=== PATIENT | male | born 2005 | race African-American/Black ===

== ENCOUNTER 2024-10-03 16:02 | Emergency (ER) | payer OTHER, SELFPAY ==
--- NOTE | ~2024-10-03 | XR_ITS ---
CLINICAL HISTORY: injured during basketball, diffusely tender 5 view left knee Comparison: None Findings: No fractures or dislocations. No significant arthritic change or erosions. Small joint effusion. No radiopaque foreign body. IMPRESSION: No acute fracture. This document has been electronically signed by: Shelby Conti MD on 10/03/2024 17:12:46
--- NOTE | 2024-10-03 16:20 | ED.GENADULT ---
HPI - General Adult General Chief complaint: Extremity Injury, Lower Stated complaint: playing basketball/left leg injury Time Seen by Provider: 10/04/24 00:28 History of Present Illness ED Provider: Jhoana DYSON narrative: The patient is a 19-year-old male who says that he injured his left knee this evening when he slipped on ice and twisted the left knee. He says he did not fall or strike the knee but had a twisting mechanism of injury. He has pain at the knee and pain with walking. There was no other injury. No numbness or tingling in the foot. Related Data Previous Rx's ?Medication ?Instructions ?Recorded ibuprofen 600 mg tablet 600 mg PO Q6H PRN pain #14 tabs 10/04/24 Allergies Allergy/AdvReac Type Severity Reaction Status Date / Time No Known Allergies Allergy Verified 10/03/24 16:23 Review of Systems Review of Systems: Yes all other systems are reviewed and are negative PMFSH Social History Social History Advance Directives: No Advance Directives Information Provided: Yes Do you have a plan to hurt others: No Plan Physical Exam ED Vital Signs: Vital Signs - 24 hr 10/03/24 16:22 Temperature 98.1 F Pulse Rate 103 H Respiratory Rate 18 Blood Pressure 136/73 Pulse Oximetry 98 Oxygen Delivery Method Room Air BMI result Body Mass Index 48.8 Const Other: The patient is a large 19-year-old male. He is awake and alert, pleasant cooperative. Does not appear in overt distress. HENNY Head: Yes normal to inspection Face and sinus: Yes normal facial exam Mouth: Normal oral and palatal mucosa present Eyes General: appearance normal, both eyes and all related structures Neck Neck: Yes full ROM Resp Effort & Inspection: normal respiratory effort Skin Other: The skin is intact. Neuro Other: The patient is awake and alert with normal mental status. Left foot is neurovascularly intact. Extrem Other: The patient has mild diffuse tenderness around the left knee. He is most tender at the medial aspect of the left knee. No gross instability the any of the ligaments of the knee. He has pain with manipulation of the knee. The remainder of the leg is unremarkable. Course Course Course Narrative: This is a rapid medical exam performed by Shwetha Glass NP: Additional HPI, ROS, PE not included below will be deferred to primary provider. Patient is a 19-year- old male presenting to the ED with complaint of left knee pain since playing basketball earlier today. Unsure of mechanism but states I felt something move and then move back. Ambulating with limp. Plan: xray Medications Administered Discontinued Medications Generic Name Dose Route Start Last Admin Trade Name Venessa PRN Reason Stop Dose Admin Acetaminophen 975 mg 10/04/24 00:37 10/04/24 00:52 Acetaminophen 325 Mg Tablet PO 10/04/24 00:38 975 mg ONCE ONE Administration Ibuprofen 600 mg 10/04/24 00:37 10/04/24 00:53 Ibuprofen 600 Mg Tablet PO 10/04/24 00:38 600 mg ONCE ONE Administration Medical Decision Making Medical Decision Making MDM Narrative: The patient is a 19-year-old male who injured his left knee when he slipped on ice. He describes a twisting type injury. An x-ray shows no fracture but does suggest a possible small effusion. His physical exam reveals that his area of maximal pain and tenderness is at the medial aspect of the left knee. No gross instability to the medial collateral ligament or the other ligaments of the knee. My plan was to give the patient a knee immobilizer and have him use crutches and follow-up with Orthopedics. Unfortunately the patient is so large that our largest knee immobilizer does not fit him. He will therefore be given Dick bandages. He has crutches at home. He is advised to rest and elevate the knee and use ice. He should follow up with Orthopedics. Discharge Plan Discharge Clinical Impression: Strain of left knee Patient Disposition: Home, Self-Care Additional Instructions: The x-ray of your knee does not show a fracture. I believe you have strained the knee. Specifically you may have strained the medial collateral ligament of the left knee. Please wear the knee immobilizer for the next several days and stay off the leg and rest as much as possible. Use the crutches that you already have as well. Use an ice pack several times a day. You may use ibuprofen as needed for the pain. Please contact the orthopedic office in the morning for a follow up appointment soon. Return to the emergency room if significantly worse at any time. Prescriptions: New ibuprofen 600 mg tablet 600 mg PO Q6H PRN (Reason: pain) Qty: 14 0RF [place] [facility] [place] Group] (left knee strain, ? medial adela ligament strain) Stand Alone Forms: Work/School Release Interventions: ED Discharge Assessment Last Done: 10/04/24 00:56 Discharge Date/Time: 10/04/24 01:10 Print Language: Rwandan
[2024-10-03 16:22] VITALS: BP 136/73; PULSE 103; RESP 18; TEMP 36.7; O2SAT 98; BMI 48.8
[2024-10-04] MEDS: Acetaminophen 325 MG TABLET 975 MG PO (00:52)
[2024-10-04] MEDS: Ibuprofen 600 MG TABLET PO (00:53)
[2024-10-04 00:56] VITALS: BP 138/66; PULSE 99; RESP 20; TEMP 36.8; O2SAT 97
--- OUTSIDE RECORDS SUMMARY | 2024-10-04 01:11 | XMS_ITS | Encounter Summary ---
Author Organization [facility] Address [phone] [place] [address] Care Team Providers Care American Indian Policy Specialist Name Role Phone Sharon Whyte MD Primary Care Provider Encounter Details Date Type Department Care Team ([facility] Contact Info) Description 09/16/2024 2:32 PM EST - 09/16/2024 11:59 PM EST Hospital Encounter [facility] [address] [place] [address] [place] [address] Sharon Wyhte MD [address] [place] [address], [address] [place] [address] [email or web address] Discharge Disposition: Home or Self Care Social History Tobacco Use Types Packs/Day Years Used Date Smoking Tobacco: Never Smokeless Tobacco: Never Alcohol Use Standard Drinks/Week Comments Never 0 (1 standard drink = 0.6 oz pur e alcohol) Child or Family Care Answer Date Record ed Do you have problems with on e of the following making it difficult for you to work, study, or receive health care? No 01/02/2024 Education Answer Date Recorded Are you interested in more education? Not on anne marie e 01/02/2024 Are you concerned about your learning, performance, or behavior in school? No 01/02/2024 No 01/02/2024 Yes 01/02/2024 Food Answer Date Recorded Within the past 6 months we worried whether our food would run out before we got money to buy more. Never True 01/02/2024 Within the past 6 months the food we bought just didn't last and we didn't have enough money to get more. Never True Residential Stability Answer Date Recor ded What is your housing situation today? I have nae belcher 01/02/2024 How many times have you move d in the past 12 months? Zero (I did not move) 01/02/2024 Paying for Meds Answer Date Recorded Do you have trouble paying for medicines? No 01/02/2024 Paying Utility Bills Answer Date Record ed Do you have trouble paying your heating or elect ricity bill? No 01/02/2024 Transportation Answer Date Recorded Has the lack of transportati on kept you from medical appointments or from getting medications? No 01/02/2024 Digital Access Answer Date Recorded No 01/02/2024 Yes 01/02/2024 Do you have reliable internet access at home? Ye s 01/02/2024 Do you have a device (e.g., phone, tablet, computer) with a working camera? Yes 01/02/2024 Intimate Partner Violence Answer Date R ecorded Denied Basic Needs Not on file 01/02/2024 In the past 12 months have y ou been in a relationship with a person who hurts, threatens, or tries to control you? No 01/02/2024 Worried food would run out Not on file 01/01 In the past 12 months have y ou been in a relationship with a person who hurts, threatens, or tries to control you? No 01/02/2024 Sex and Gender Information Value Date Recorded Sex Assigned at Male 05/28/2021 10:46 PM EDT Gender Identity Male 05/28/2021 10:46 PM EDT Sexual Orientation Not on file documented as of this encounter Medications at Time of Discharge Medication Sig Dispensed Refills Start Date End Date atovaquone-proguanil (MALARONE) 250-100 mg TabIndications:Travel advice encounter Take 1 tablet by mouth daily. Start 1-2 days before travel, continue while traveling and for 1 week after return 33 tablet 01/02/2024 documented as of this encounter Plan of Treatment Not on file documented as of this encounter Procedures Procedure Name Priority Date/Time Associated Diagnosis Comments COMPREHENSIVE METABOLIC PANEL Routine 09/16/2024 2:33 PM EST Class 3 severe obesity without serious comorbidity with body mass index (BMI) of 45.0 to 49.9 in adult, unspecified obesity type TSH WITH REFLEX Routine 09/16/2024 2:33 PM EST Class 3 severe obesity without serious comorbidity with body mass index (BMI) of 45.0 to 49.9 in adult, unspecified obesity type CBC Routine 09/16/2024 2:33 PM EST Class 3 severe obesity without serious comorbidity with body mass index (BMI) of 45.0 to 49.9 in adult, unspecified obesity type HEMOGLOBIN A1C Routine 09/16/2024 2:33 PM EST Class 3 severe obesity without serious comorbidity with body mass index (BMI) of 45.0 to 49.9 in adult, unspecified obesity type LIPID PANEL Routine 09/16/2024 2:33 PM EST Class 3 severe obesity without serious comorbidity with body mass index (BMI) of 45.0 to 49.9 in adult, unspecified obesity type documented in this encounter Results * (ABNORMAL) CBC (09/16/2024 2:33 PM EST) WBC 8.60 4.00 - 11.00 K/uL [facility] RBC 5.07 4.50 - 5.90 M/uL [facility] HGB 13.5 13.5 - 17.5 g/dL [facility] HCT 42.2 41.0 - 53.0 % [facility] PLT 246 150 - 450 K/uL [facility] MCV 83.2 80.0 - 100.0 fL [facility] MCH 26.6(L) 27.0 - 31.0 pg [facility] MCHC 32.0 32.0 - 36.0 g/dL [facility] RDW 14.7(H) 11.5 - 14.5 % [facility] MPV 11.5 8.4 - 12.0 fL [facility] NRBC 0.00 0.00 /100 WBCs [facility] ABSOLUTE NRBC 0.00 0.00 K/uL [facility] Blood 09/16/2024 2:33 PM EST 09/16/2024 2:39 PM EST Sharon Whyte MD LAB BLOOD ORDERABLE S [address] [address] * (ABNORMAL) Comprehensive metabolic panel (09/16/2024 2:33 PM EST) SODIUM 142 133 - 146 mmol/L [facility] POTASSIUM 4.3 3.3 - 5.1 mmol/L [facility] CHLORIDE 104 96 - 108 mmol/L [facility] CO2 28 21 - 35 mmol/L [facility] BUN 14 6 - 19 mg/dL [facility] CREATININE 1.30 0.5 - 1.5 mg/dL [facility] GLUCOSE 83 70 - 99 mg/dL [facility] ALBUMIN 4.2 3.9 - 4.8 g/dL [facility] TOTAL PROTEIN 7.9 6.5 - 8.0 g/dL [facility] CALCIUM 9.9 8.4 - 10.3 mg/dL [facility] ALKALINE PHOSPHATASE 109 39 - 117 U/L [facility] TOTAL BILIRUBIN <0.2 0.0 - 1.2 mg/dL [facility] AST 69(H) 0 - 37 U/L [facility] ALT 75(H) 0 - 40 U/L [facility] GLOBULIN 3.7 1 - 4.8 g/dL [facility] EGFR 81 >59 mL/min/1.7 3m2 [facility] Comment:Estimated glomerular filtration rate calculated using the CKD-EPI refit equation. ANION GAP 14 10 - 20 mmol/L [facility] Blood 09/16/2024 2:33 PM EST 09/16/2024 2:39 PM EST Sharon Whyte MD LAB BLOOD ORDERABLE S [address] [address] * Hemoglobin A1c (09/16/2024 2:33 PM EST) HEMOGLOBIN A1C 5.8 4.3 - 5.8 % [facility] Blood 09/16/2024 2:33 PM EST 09/16/2024 2:38 PM EST Sharon Whyte MD LAB BLOOD ORDERABLE S Performing Organization Address City/[facility]/ZIP Co de Phone Number [address] [address] * (ABNORMAL) Lipid panel (09/16/2024 2:33 PM EST) HDL 38 mg/dL [facility] Comment: ? Interpretation <40 mg/dL: Low HDL cholesterol (major risk factor for CHD) Greater than or equal to 60 mg/dL: High HDL cholesterol ( negative risk factor for CHD) HDL - cholesterol is affected by a number of factors, e.g. smoking, excerise, hormones, sex and age. CHOLESTEROL 160 0 - 240 mg/dL [facility] TRIGLYCERIDES 184(H) 30 - 160 mg/dL [facility] LDL 85 50 - 129 mg/dL [facility] Comment: LDL levels in terms of risk for coronary heart disease: <100 mg/dL: Optimal 100-129 mg/dL: Near or above optimal 130-159 mg/dL: Borderline high 160-189 mg/dL: High >190 mg/dL: Very High CARDIAC RISK RATIO 4.2 3.4 - 5.0 [facility] Blood 09/16/2024 2:33 PM EST 09/16/2024 2:38 PM EST Sharon Whyte MD LAB BLOOD ORDERABLE S Performing Organization Address City/[facility]/ZIP Co de Phone Number [address] [address] * TSH with reflex (09/16/2024 2:33 PM EST) TSH 1.71 0.27 - 4.20 uIU/mL [facility] Blood 09/16/2024 2:33 PM EST 09/16/2024 2:39 PM EST Sharon Whyte MD LAB BLOOD ORDERABLE S [facility] [address] [place] [address] documented in this encounter Visit Diagnoses Diagnosis Class 3 severe obesity without serious comorbidity with body mass index (BMI) of 45.0 to 49.9 in adult, unspecified obesity type documented in this encounter Additional Health Concerns Assessment Noted Time PHQ-2 Depression Total Score: 0 01/02/20 10:12 AM EDT documented as of this encounter Care Teams American Indian Policy Specialist Relationship Specialty Start Date End Date Sharon Whyte MD [address] [place] [address], [address] [place] [address] [email or web address] PCP - General Internal Medicine 01/02/24 documented as of this encounter Additional Source Comments The information contained in this document represents components of the legal health record. It is not the complete legal health record.[facility]
--- OUTSIDE RECORDS SUMMARY | 2024-10-04 01:11 | XMS_ITS | Clinical Summary ---
Author Organization [facility] Address [address] [place] [address] Phone Care Team Providers Care Graffiti Cleaner Name Role Phone Erica Harrington MD Primary Care Provider [phone] Allergies No known active allergies Medications No known medications Active Problems Problem Noted Date Diagnosed Date Overweight 10/07/2009 Assessment & Plan (06/05/2019 3:03 PM EDT): Discussed reducing soda intake and juice intake, drinking more water and watching portion sizes. Resolved Problems Problem Noted Date Diagnosed Date Resolved Date Learning problem 12/28/2016 05/03/2018 Immunizations Immunization Administration Dates Next Due DTaP 5 04/24/2009, 9,2004,06/19,2004 H1N1 Nasal 07/26/2009 HPV Vaccine 9 Valent 05/03/2018,12/28/2016 Hep A, ped/adol 05/03/2018,12/28/2016 Hep B, ped/adol 06/17/2008,12/27/2007,11/27/2007 IPV 10/14/2008, 4,2004,05/15 Influenza Split 06/17/2008 Influenza, injectable, quadr ivalent, preservative free 05/06/2020,06/05/2019,05/03/2018,10/04 Influenza, injectable, triva lent, preservative free 07/02/2013,07/26/2009 Influenza, intranasal, trivalent 06/02/2010 MMR 12/03/2014,10/14/2008 Measles 11/27/2007 Meningococcal Conj (Menactra) MCV4P 08/04/2020,0 12/28/2016 PPD Test 10/14/2008 Rubella 11/27/2007 Tdap 12/23/2015 Varicella 11/08/2012,10/14/2008 Social History Tobacco Use Types Packs/Day Years Used Date Smoking Tobacco: Never Smokeless Tobacco: Never Hunger/Food Answer Date Recorded In the last 12 months, did y ou or your family ever eat less than you felt you should because there wasn't enough money for food? No 06/05/2019 Stable Housing Answer Date Recorded Are you worried that in the next 2 months you may not have stable housing? No 06/05/2019 Transportation Concerns Answer Date Rec orded In the last 12 months, have you or your family ever had to go without healthcare because you didn't have a way to get there? No 06/05/2019 Hazards in Home Answer Date Recorded Think about the place you li ve. Do you have problems with any of the following? Pests (mice or roaches), mold, no/not working smoke detectors, water leaks, no window guards. No 2018 Financing Utilities Answer Date Recorde d In the last 12 months, has t he electric, gas, oil, or water company threatened to shut off your services in your home? No 06/05/2019 Safety at Home Answer Date Recorded Are you or your family worried about feeling saf e in your home? No 06/05/2019 Outside Support Answer Date Recorded Do you feel that you need mo re support from other people or programs to help you care for yourself or your family? No 06/05/2019 Understanding Health Concerns Answer Da te Recorded Do you need help understandi ng your or your child's healthcare needs (diagnosis, medications, plan, etc.)? No 06/05/2019 Financing Health Concerns Answer Date R ecorded In the last 12 months, was t here a time when your child needed to see a doctor or get medications or supplies but could not because of cost? No 06/05/2019 Missing School or Work Answer Date Will rded Did you or your child miss s chool or work because of a health problem that could have been avoided? No 06/05/2019 Sex and Gender Information Value Date Recorded Sex Assigned at Male 06/05/2019 1:42 PM EDT Legal Sex Male 4:14 PM EST Gender Identity Male 06/05/2019 1:42 PM EDT Sexual Orientation Straight 06/05/2019 1: 42 PM EDT Last Filed Vital Signs Vital Sign Reading Time Taken Comments Blood Pressure 122/74 08/04/2020 2:35 PM EST Pulse 98 08/04/2020 2:35 PM EST Temperature 36.7 ??C (98.1 ??F) 05/20/2019 9:16 AM ED T Respiratory Rate 16 05/20/2019 9:16 AM EDT Oxygen Saturation 99% 05/20/2019 9:16 AM EDT ra Inhaled Oxygen Concentration - - Weight 133 kg (294 lb 3.2 oz) 08/04/2020 2:35 PM EST Height 188 cm (6' 2 ) 08/04/2020 2:35 PM EST Body Mass Index 37.77 08/04/2020 2:35 PM EST Plan of Treatment Health Maintenance Due Date Last Done Comments Consider Men B Vaccine (1 of 2 - Bexsero 2-dose series) 2020 Men B Vaccine (1 of 2 - Standard) 2020 Influenza Vaccines (#1) 2024 05/06/20 20, 06/05/2019, 05/03/2018, Additional history exists COVID-19 Vaccine ( - season) 2024 01/27/2022, 02/01/2021, 01/11/2021 DTaP,Tdap,and Td Vaccines (7 - Td or Tdap) 12/22/2025 12/23/2015, 04/24/2009, 10/14/2008, Additional history exists Hepatitis B Vaccines Completed 06/17/2008, 12/27/2007, 11/27/2007 IPV Vaccines Completed 10/14/2008, 06/22, 2004, Additional history exists Varicella Vaccines Completed 11/08/2012, 10/14/2008 MMR Vaccines Completed 12/03/2014, 10/14/2008 HPV Vaccines Completed 05/03/2018, 12/28/2016 Hepatitis A Vaccines Completed 05/03/2018, 12/29/19 17 Meningococcal Vaccine Completed 08/04/2020, 017 HIB Vaccines Aged Out No longer eligi ble based on patient's age to complete this topic Pneumococcal Vaccine Aged Out No long er eligible based on patient's age to complete this topic Care Teams Graffiti Cleaner Relationship Specialty Start Date End Date Erica Harrington MD [address] [place] [address] [address] [place] [address] PCP - General Pediatrics 11/23/16
--- OUTSIDE RECORDS SUMMARY | 2024-10-04 01:11 | XMS_ITS | Encounter Summary ---
Author Organization [facility] Address [address] [place] [address] Phone Care Team Providers Care Tobacco Wetter Name Role Phone Erica Harrington MD Primary Care Provider [phone] Encounter Details Date Type Department Care Team (Late st Contact Info) Description 06/02/2010 Nurse Only [address] [address] Social History Tobacco Use Types Packs/Day Years Used Date Smoking Tobacco: Never Assessed Sex and Gender Information Value Date Recorded Sex Assigned at Male 06/05/2019 1:42 PM EDT Legal Sex Male 4:14 PM EST Gender Identity Male 06/05/2019 1:42 PM EDT Sexual Orientation Straight 06/05/2019 1: 42 PM EDT documented as of this encounter Nursing Notes * UNKNOWN, HISTORICAL - 06/02/2010 1:42 PM EDT Brissa Mauro 2004 NURSE NOTE/VERBAL ORDERS Office/Outpatient Visit Visit Date: Jun 02, 2010 01:42 pm Provider: Cely Delgado LPN (Machine Welder: Manuela Velázquez MD; Power Mule Operator: Cely Delgado LPN) Location: [facility]. ECTIVE: CC: He is here for the Flu Clinic. HPI: Pt enters with Mom. No known chronic health conditions. Fever or illness is not present today. No trouble breathing or hives after eating eggs He has not had a reaction to the flu vaccine or other immunization. Flu vaccine VIS was given today.(interim 03/30/10) There were no questions or concerns voiced at today's visit. OBJECTIVE: Exams: GENERAL APPEARANCE: Alert, active, looks well, mood appropriate ASSESSMENT: V04.81 Flu Clinic ORDERS: Procedures Ordered: Flu Vaccine live, Intranasal use Immunization administration (includes percutaneous, intradermal, subcutaneous or intramuscular injec PLAN: Flu Clinic Influenza intranasal vaccine given No contraindications noted for flu vaccines. Tolerated well, left office in good condition. Orders: Flu Vaccine live, Intranasal use Immunization administration (includes percutaneous, intradermal, subcutaneous or intramuscular injec Patient Recommendations: For Flu Clinic: Influenza (Given) CHARGE CAPTURE: Primary Diagnosis: V0 Flu Clinic Orders: [id number] Flu Vaccine live, Intranasal use [id number] Immunization administration (includes percutaneous, intradermal, subcutaneous or intramuscular injec documented in this encounter Plan of Treatment Not on file documented as of this encounter Visit Diagnoses Not on filedocumented in this encounter Care Teams Tobacco Wetter Relationship Specialty Start Date End Date Erica Harrington MD [address] [place] [address] [address] [place] [address] PCP - General Pediatrics 11/23/16 documented as of this encounter
--- OUTSIDE RECORDS SUMMARY | 2024-10-04 01:11 | XMS_ITS | Clinical Summary ---
Author Organization [facility] Address [phone] [address] [place] [address] Care Team Providers Care Wood Grinder Operator Name Role Phone Sharon Whyte MD Primary Care Provider Allergies No known active allergies Medications Medication Sig Dispensed Refills Start Date End Date Status atovaquone-proguanil (MALARONE) 250-100 mg TabIndications:Joseph galvan advice encounter Take 1 tablet by mouth daily. Start 1-2 days before travel, continue while traveling and for 1 week after return 33 tablet 01/02/2024 Active Active Problems Problem Noted Date Diagnosed Date Travel advice encounter 01/04/2024 Assessment & Plan (01/04/2024 8:30 PM EDT): He will be traveling to [facility] with his family. We discussed malaria prophylaxis. He was given Malarone for this. We also discussed cholera and typhoid vaccine. He was advised to go to a travel clinic to discuss those vaccines. Class 3 severe obesity witho ut serious comorbidity with body mass index (BMI) of 45.0 to 49.9 in adult 10/07/2009 Overview (01/02/2024): Last Assessment & Plan: Discussed reducing soda intake and juice intake, drinking more water and watching portion sizes. Assessment & Plan (01/04/2024 8:25 PM EDT): He is working on diet and lifestyle changes with goal of weight loss. Encounters Date Type Department Care Team Description 09/16/2024 2:32 PM EST - 09/16/2024 11:59 PM EST Hospital Encounter [facility] [address] [place] [address] Sharon Whyte MD Discharge Disposition: Home or Self Care from Last 3 Months Immunizations Name Administration Dates Next Due DTaP 04/24/2009, 9,2004,06/19,2004 [id number] 07/26/2009 HPV9 05/03/2018,12/28/2016 Hep A,ped/adol,3 dose 05/03/2018,12/28/2016 Hepatitis B 06/17/2008,12/27/2007,11/27/2007 IPV 10/14/2008, 4,2004,05/15 Influenza High-Dose Quadriva lent Preservative Free IM 07/02/2013,07/26/2009 Influenza Split (Incl. Purif ied Surface Antigen) 06/17/2008 Influenza quadrivalent nasal 06/02/2010 Influenza, Injectable,pedro valent, Preservative Free, Ped 05/06/2020,06/05/2019,05/03/2018,10/04 Meningococcal MCV4P 08/04/2020,12/28/2016 Family History Medical History Relation Comments Diabetes mellitus Father Heart disease Father Hypothyroidism Mother Relation Status Comments Father Mother Social History Tobacco Use Types Packs/Day Years Used Date Smoking Tobacco: Never Smokeless Tobacco: Never Tobacco Cessation:Counseling Given: Not Answered Alcohol Use Standard Drinks/Week Comments Never 0 [...] PM EDT Sexual Orientation Not on file Last Filed Vital Signs Vital Sign Reading Time Taken Comments Blood Pressure 138/86 01/02/2024 10:22 AM EDT Pulse 90 01/02/2024 10:22 AM EDT Temperature 36.1 ??C (97 ??F) 01/02/2024 10: 22 AM EDT Respiratory Rate 20 05/28/2021 10:4 4 PM EDT Oxygen Saturation 99% 01/02/2024 10: 22 AM EDT Inhaled Oxygen Concentration - - Weight 169.9 kg (374 lb 9.6 oz) 024 10:22 AM EDT Height 188 cm (6' 2 ) 01/02/2024 10:22 AM EDT Body Mass Index 48.1 01/02/2024 10:22 AM EDT Plan of Treatment Health Maintenance Due Date Last Done Comments HEPATITIS B SCREENING 2022 HEPATITIS C SCREENING 2022 HIV ONE-TIME SCREENING (18-65 YEARS) 2022 INFLUENZA VACCINE (#1) 2024 0, 06/05/2019, 05/03/2018, Additional history exists COVID-19 VACCINE ( season) 2024 DEPRESSION SCREENING 01/01/2025 01/02/2024 DEVELOPMENTAL/BEHAVIORAL SCREENING (PHQ, PSC, or SWYC) 01/01/2025 01/02/2024 SMOKING Hx and SMOKELESS TOBACCO SCREENING 01/01/2025 01/02/2024 COMBINED DTaP,Tdap,Td (6 - Td or Tdap) 12/22/2025 12/23/2015, 04/24/2009, 10/14/2008, Additional history exists HEPATITIS B VACCINES Completed 06/17/2008, 12/27/2007, 11/27/2007 VARICELLA VACCINES Completed 11/08/2012, 10/14/2008 MMR VACCINES Completed 12/03/2014, 10/14/2008 HEPATITIS A VACCINES Completed 05/03/2018, 12/29/19 17 HPV VACCINES Completed 05/03/2018, 12/28/2016 MENINGOCOCCAL VACCINES (ACWY) Completed 08/04/2020, 12/28/2016 ADOLESCENT UNIVERSAL LIPID SCREENING Completed 09/16/2024 HIB VACCINES Aged Out No longer eligi ble based on patient's age to complete this topic PNEUMOCOCCAL VACCINES (0-49 years) Aged Out No longer eligible based on patient's age to complete this topic Medical Devices Not on file Procedures Procedure Name Priority Date/Time Associated Diagnosis Comments CBC Routine 09/16/2024 2:33 PM EST Class 3 severe obesity without serious comorbidity with body mass index (BMI) of 45.0 to 49.9 in adult, unspecified obesity type COMPREHENSIVE METABOLIC PANEL Routine 09/16/2024 2:33 PM [...] to 49.9 in adult, unspecified obesity type from Last 3 Months Results * (ABNORMAL) Comprehensive metabolic panel (09/16/2024 2:33 PM EST) SODIUM 142 133 - 146 mmol/L [facility] POTASSIUM 4.3 3.3 - 5.1 mmol/L [facility] CHLORIDE 104 96 - 108 mmol/L [facility] CO2 28 21 - 35 mmol/L [facility] BUN 14 6 - 19 mg/dL [facility] CREATININE 1.30 0.5 - 1.5 mg/dL [facility] GLUCOSE 83 70 - 99 mg/dL [facility] ALBUMIN 4.2 3.9 - 4.8 g/dL [facility] TOTAL PROTEIN 7.9 6.5 - 8.0 g/dL [facility] CALCIUM 9.9 8.4 - 10.3 mg/dL [facility] ALKALINE PHOSPHATASE 109 39 - 117 U/L [facility] TOTAL BILIRUBIN <0.2 0.0 - 1.2 mg/dL [facility] AST 69(H) 0 - 37 U/L [facility] ALT 75(H) 0 - 40 U/L [facility] GLOBULIN 3.7 1 - 4.8 g/dL [facility] EGFR 81 >59 mL/min/1.7 3m2 [facility] Comment:Estimated glomerular filtration rate calculated using the CKD-EPI refit equation. ANION GAP 14 10 - 20 mmol/L [facility] Blood 09/16/2024 2:33 PM EST 09/16/2024 2:39 PM EST Sharon Whyte MD LAB BLOOD ORDERABLE S [address] [address] * TSH with reflex (09/16/2024 2:33 PM EST) TSH 1.71 0.27 - 4.20 uIU/mL [facility] Blood 09/16/2024 2:33 PM EST 09/16/2024 2:39 PM EST Sharon Whyte MD LAB BLOOD ORDERABLE S [address] [address] * (ABNORMAL) CBC (09/16/2024 2:33 PM EST) WBC 8.60 4.00 - 11.00 K/uL [facility] RBC 5.07 4.50 - 5.90 M/uL [facility] HGB 13.5 13.5 - 17.5 g/dL [facility] HCT 42.2 41.0 - 53.0 % [facility] PLT 246 150 - 450 K/uL [facility] MCV 83.2 80.0 - 100.0 fL [facility] MCH 26.6(L) 27.0 - 31.0 pg [facility] MCHC 32.0 32.0 - 36.0 g/dL [facility] RDW 14.7(H) 11.5 - 14.5 % [facility] MPV 11.5 8.4 - 12.0 fL [facility] NRBC 0.00 0.00 /100 WBCs [facility] ABSOLUTE NRBC 0.00 0.00 K/uL [facility] Blood 09/16/2024 2:33 PM EST 09/16/2024 2:39 PM EST Sharon Whyte MD LAB BLOOD ORDERABLE S Performing Organization Address City/[facility]/ZIP Co de Phone Number [address] [address] * Hemoglobin A1c (09/16/2024 2:33 PM EST) HEMOGLOBIN A1C 5.8 4.3 - 5.8 % [facility] Blood 09/16/2024 2:33 PM EST 09/16/2024 2:38 PM EST Sharon Whyte MD LAB BLOOD ORDERABLE S Performing Organization Address [facility] de Phone Number [address] [address] * (ABNORMAL) Lipid panel (09/16/2024 2:33 PM EST) HDL 38 mg/dL [facility] Comment: ? Interpretation <40 mg/dL: Low HDL cholesterol (major risk factor for CHD) Greater than or equal to 60 mg/dL: High HDL cholesterol ( negative risk factor for CHD) HDL - cholesterol is affected by a number of factors, e.g. smoking, excerise, hormones, sex and age. CHOLESTEROL 160 0 - 240 mg/dL [facility] TRIGLYCERIDES 184(H) 30 - 160 mg/dL [facility] LDL 85 50 - 129 mg/dL [facility] Comment: LDL levels in terms of risk for coronary heart disease: <100 mg/dL: Optimal 100-129 mg/dL: Near or above optimal 130-159 mg/dL: Borderline high 160-189 mg/dL: High >190 mg/dL: Very High CARDIAC RISK RATIO 4.2 3.4 - 5.0 C [facility] Blood 09/16/2024 2:33 PM EST 09/16/2024 2:38 PM EST Sharon Whyte MD LAB BLOOD ORDERABLE S Performing Organization Address City/[facility] Co de Phone Number [address] [place] [address] from Last 3 Months Care Teams Wood Grinder Operator Relationship Specialty Start Date End Date Sharon Whyte MD [address] [place] [address], [address] [place] [address] [email or web address] PCP - General Internal Medicine 01/02/24 Additional Source Comments The information contained in this document represents components of the legal health record. It is not the complete legal health record.[facility]
--- OUTSIDE RECORDS SUMMARY | 2024-10-04 01:11 | XMS_ITS | Encounter Summary ---
Author Organization [facility] Address [address] [place] [id number] Phone Care Team Providers Care Contractor Field Hauling Name Role Phone Erica Harrington MD Primary Care Provider [phone] Encounter Details Date Type Department Care Team (Late st Contact Info) Description 07/02/2013 Nurse Only [address] [address] Social History Tobacco Use Types Packs/Day Years Used Date Smoking Tobacco: Never Assessed Sex and Gender Information Value Date Recorded Sex Assigned at Male 06/05/2019 1:42 PM EDT Legal Sex Male 4:14 PM EST Gender Identity Male 06/05/2019 1:42 PM EDT Sexual Orientation Straight 06/05/2019 1: 42 PM EDT documented as of this encounter Nursing Notes * UNKNOWN, HISTORICAL - 07/02/2013 9:19 AM EST Brissa Mauro 2005 NURSE NOTE/VERBAL ORDERS Office/Outpatient Visit Visit Date: Jul 02, 2013 09:19 am Provider: Jessica Valdes LPN (Recording Studio Set Up Worker: Meka Mchugh MD; Curriculum Counselor: Jessica Valdes LPN) Location: [facility]. ECTIVE: CC: He is here for the Flu Clinic. enters with dad HPI: No known chronic health conditions. Fever or illness is not present today. No trouble breathing or hives after eating eggs He has not had a reaction to the flu vaccine or other immunization. Flu vaccine VIS was given today.(interim 03/15/13) There were no questions or concerns voiced at today's visit. Allergies: Last Reviewed on 11/08/2012 4:09:56 PM by Jackeline Slaughter No Known Drug Allergies. OBJECTIVE: Exams: GENERAL APPEARANCE: Alert, active, looks well, mood appropriate ASSESSMENT: V04.81 Flu Clinic ORDERS: Procedures Ordered: Flu Vaccine (In-House) Immunization administration (includes percutaneous, intradermal, subcutaneous or intramuscular injec (In-House) PLAN: Flu Clinic Influenza vaccine > 3 yr given No contraindications noted for flu vaccines. Tolerated well, left office in good condition. Orders: Flu Vaccine (In-House) Immunization administration (includes percutaneous, intradermal, subcutaneous or intramuscular injec (In-House) Patient Recommendations: For Flu Clinic: Influenza (Given) CHARGE CAPTURE: Primary Diagnosis: V04.81 Flu Clinic Orders: [id number] Flu Vaccine (In-House) [id number] Immunization administration (includes percutaneous, intradermal, subcutaneous or intramuscular injec (In-House) documented in this encounter Plan of Treatment Not on file documented as of this encounter Visit Diagnoses Not on filedocumented in this encounter Care Teams Contractor Field Hauling Relationship Specialty Start Date End Date Erica Harrington MD [address] [place] [address] [address] [place] [address] PCP - General Pediatrics 11/23/16 documented as of this encounter
--- OUTSIDE RECORDS SUMMARY | 2024-10-04 01:11 | XMS_ITS | Encounter Summary ---
Author Organization [facility] Address [phone] [place] [address] Care Team Providers Care Bilingual Legal Assistant Name Role Phone Erica Harrington MD Primary Care Provider [phone] Sharon Whyte MD Primary Care Provider [phone] Encounter Details Date Type Department Care Team (Late st Contact Info) Description 06/01/2021 Procedure Pass [facility], [address] [address] Social History Tobacco Use Types Packs/Day Years Used Date Smoking Tobacco: Never Smokeless Tobacco: Never Alcohol Use Standard Drinks/Week Comments Never 0 (1 standard drink = 0.6 oz pur e alcohol) Sex and Gender Information Value Date Recorded Sex Assigned at Male 05/28/2021 10:46 PM EDT Gender Identity Male 05/28/2021 10:46 PM EDT Sexual Orientation Not on file documented as of this encounter Plan of Treatment Not on file documented as of this encounter Visit Diagnoses Not on filedocumented in this encounter Care Teams Bilingual Legal Assistant Relationship Specialty Start Date End Date Erica Harrington MD [address] [place] [address] PCP - General 05/28/21 01/01/24 Sharon Whyte MD [address] [place] [address], [address] [place], [place] rose PCP - General Internal Medicine 01/02/24 documented as of this encounter Additional Source Comments The information contained in this document represents components of the legal health record. It is not the complete legal health record.[facility]
== END 2024-10-04 01:10 | disposition home or self-care (01) ==
LOC: HO.ED 10-04 01:08
PROVIDERS: Emergency Provider Emergency Medicine; PCP Internal Medicine
DX: S83.92XA Sprain of unspecified site of left knee, initial encounter (principal); M25.562 Pain in left knee; W00.0XXA Fall on same level due to ice and snow, initial encounter; Y93.89 Activity, other specified; Y92.89 Other specified places as the place of occurrence of the external cause; Y99.8 Other external cause status
CPT/HCPCS: 73564; 99283

== ENCOUNTER → 2024-10-03 16:23 | Outpatient (BNV) | payer SELFPAY | PROVIDERS: PCP Internal Medicine; Visit Provider Nuclear Medicine | DX: S80.912A Unspecified superficial injury of left knee, initial encounter (principal); W21.05XA Struck by basketball, initial encounter | CPT/HCPCS: 73564 ==